=== PATIENT | female | born 1925 | race Caucasian/White ===

== ENCOUNTER 2017-02-10 12:23 | Emergency (ER) | payer OTHER ==
[~2017-02-10] VITALS: Ht 157.5 cm; Wt 87.6 kg
[~2017-02-10 12:23] MED LIST: ALPRAZOLAM0.5 MG PO; AMLODIPINE BESYL5 MG PO; CIPRO500 MG PO; DIGOX250 MCG PO; DILTIAZEM 24HR240 MG PO; HYDROCODON-ACE1 EAC8 PO; JANUVIA100 MG PO; K-DUR20 MEQ PO; KEFLEX500 MG PO; LASIX40 MG PO; LOPRESSOR100 M1 PO; LOPRESSOR25 MG PO; MIRALAX17 GM PO; MIRALAX255 GM PO; OMEPRAZOLE20 MG PO; POLYETHYLENE GL17 GM PO; POTASSIUM CHLO20 ME1 PO
[2017-02-10 13:27] LABS: HEMATOCRIT 38.6 % (36.0-46.0); MCH 28.4 PG (29.0-34.0); MCHC 31.1 G/DL (30.0-36.0); MCV 91.3 FL (83-99); MEAN PLAT.VOLUME 9.6 uM^3 (9.5-12.4); NRBC (%) 0.4 /100 WBC (0-0); PLATELET COUNT 239 K/uL (156-360); RBC DIS.WIDTH-CV 15.8 % (11.8-14.6); RBC DIS.WIDTH-SD 52.2 % (39-53); RED BLOOD COUNT 4.23 M/uL (3.80-5.20); WHITE BLOOD COUNT 5.6 K/uL (4.1-10.2)
[2017-02-10 13:38] LABS: INTER. NORMALIZED RATIO 1.1; PROTHROMBIN TIME 10.7 (9.2-11.2); PTT 28.2 (25-32)
[2017-02-10 13:50] LABS: TROP-I INTERPRETATION NEGATIVE; TROPONIN-I < 0.01 ng/mL (0.0-0.30)
[2017-02-10 13:51] LABS: CHLORIDE 105 mEq/L (99-109); POTASSIUM 3.7 mEq/L (3.7-5.4); SODIUM 142 mEq/L (136-147)
[2017-02-10 13:53] LABS: GLUCOSE 113 mg/dL (70-99)
[2017-02-10 13:55] LABS: ANION GAP 10 MEQ/L (2-14); TOTAL BILIRUBIN 0.7 mg/dL (0.0-1.0)
[2017-02-10 13:57] LABS: ALKALINE PHOSPHATASE 56 IU/L (3-129); GFR ESTIMATE (CALCULATED) > 59 mL/min/
[2017-02-10 13:58] LABS: UREA NITROGEN (BUN) 14 mg/dL (9-23)
[2017-02-10 14:00] LABS: LIPASE 15 U/L (1.0-51.0)
[2017-02-10 14:35] LABS: INFLUENZA A VIRAL ANTIGEN NEGATIVE; INFLUENZA B VIRAL ANTIGEN NEGATIVE
[2017-02-10] MEDS ORDERED: ZOFRAN ODT4 MG PO (18:27)
[2017-02-10 19:28] VITALS: BP 145/78
== END 2017-02-10 19:36 | disposition home or self-care (01) ==
LOC: EME 12:23
PROVIDERS: Emergency Medicine
DX: K52.9 Noninfective gastroenteritis and colitis, unspecified (principal); I10 Essential (primary) hypertension
CPT/HCPCS: 71020; 74177; 80053; 81003; 83690; 84484; 85027; 85610; 85730; 87502; 93005; 99281; 99285

== ENCOUNTER 2017-04-18 11:10 | Inpatient (IN) | payer OTHER ==
[~2017-04-18] VITALS: Ht 160 cm; Wt 89.0 kg
[~2017-04-18 11:10] MED LIST changes: +ZOFRAN ODT4 MG PO
[2017-04-18 13:09] LABS: HEMATOCRIT 41.5 % (36.0-46.0); MCH 28.6 PG (29.0-34.0); MCHC 30.6 G/DL (30.0-36.0); MCV 93.5 FL (83-99); MEAN PLAT.VOLUME 10.9 uM^3 (9.5-12.4); PLATELET COUNT 129 K/uL (156-360); RBC DIS.WIDTH-CV 17.6 % (11.8-14.6); RBC DIS.WIDTH-SD 59.6 % (39-53); RED BLOOD COUNT 4.44 M/uL (3.80-5.20); WHITE BLOOD COUNT 8.8 K/uL (4.1-10.2)
[2017-04-18 13:19] LABS: CHLORIDE 104 mEq/L (99-109); INTER. NORMALIZED RATIO 1.1; POTASSIUM 4.6 mEq/L (3.7-5.4); PROTHROMBIN TIME 10.8 (9.2-11.2); PTT 26.3 (25-32); SODIUM 139 mEq/L (136-147)
[2017-04-18 13:22] LABS: GLUCOSE 130 mg/dL (70-99)
[2017-04-18 13:23] LABS: ANION GAP 11 MEQ/L (2-14)
[2017-04-18 13:24] LABS: TOTAL BILIRUBIN 0.8 mg/dL (0.0-1.0)
[2017-04-18 13:25] LABS: ALKALINE PHOSPHATASE 54 IU/L (3-129); GFR ESTIMATE (CALCULATED) 55 mL/min/
[2017-04-18 13:26] LABS: UREA NITROGEN (BUN) 20 mg/dL (9-23)
[2017-04-18 13:30] LABS: TROP-I INTERPRETATION NEGATIVE; TROPONIN-I < 0.01 ng/mL (0.0-0.30)
[2017-04-18 16:57] LABS: POINT-OF-CARE METER ID UU13113747
[2017-04-18 22:38] LABS: POINT-OF-CARE METER ID UU13113747
[2017-04-19 00:59] VITALS: BP 130/69
[2017-04-19 07:14] LABS: HEMATOCRIT 37.9 % (36.0-46.0); MCH 28.4 PG (29.0-34.0); MCHC 30.1 G/DL (30.0-36.0); MCV 94.3 FL (83-99); MEAN PLAT.VOLUME 9.9 uM^3 (9.5-12.4); PLATELET COUNT 95 K/uL (156-360); RBC DIS.WIDTH-CV 17.7 % (11.8-14.6); RED BLOOD COUNT 4.02 M/uL (3.80-5.20); WHITE BLOOD COUNT 7.3 K/uL (4.1-10.2)
[2017-04-19 07:38] LABS: ANION GAP 6 MEQ/L (2-14); CHLORIDE 106 MEQ/L (99-109); GFR ESTIMATE (CALCULATED) > 59 mL/min/; GLUCOSE 103 mg/dL (70-99); POTASSIUM 4.4 MEQ/L (3.7-5.4); SAMPLE HEMOLYSIS CHECK 0; SAMPLE ICTERIC CHECK 0; SAMPLE LIPEMIA CHECK 0; SODIUM 139 MEQ/L (136-147); UREA NITROGEN (BUN) 17 mg/dL (9-23)
[2017-04-19 08:24] VITALS: BP 130/71
[2017-04-19 11:56] VITALS: BP 117/65
[2017-04-19 12:50] LABS: POINT-OF-CARE METER ID UU14188577
[2017-04-19 15:47] VITALS: BP 130/70
[2017-04-19 17:01] LABS: POINT-OF-CARE METER ID UU14149397
[2017-04-19 21:21] VITALS: BP 126/56
[2017-04-19 22:34] LABS: POINT-OF-CARE METER ID UU14188577
[2017-04-19 23:46] VITALS: BP 120/57
[2017-04-20 04:12] VITALS: BP 128/77
[2017-04-20 06:13] LABS: HEMATOCRIT 33.6 % (36.0-46.0)
[2017-04-20 06:36] LABS: POINT-OF-CARE METER ID UU14188577
[2017-04-20 06:40] LABS: ANION GAP 5 MEQ/L (2-14); CHLORIDE 107 MEQ/L (99-109); GFR ESTIMATE (CALCULATED) > 59 mL/min/; GLUCOSE 92 mg/dL (70-99); POTASSIUM 4.7 MEQ/L (3.7-5.4); SAMPLE HEMOLYSIS CHECK 0; SAMPLE ICTERIC CHECK 0; SAMPLE LIPEMIA CHECK 0; SODIUM 140 MEQ/L (136-147); UREA NITROGEN (BUN) 18 mg/dL (9-23)
[2017-04-20 08:11] VITALS: BP 132/82
[2017-04-20 10:38] VITALS: BP 126/70
[2017-04-20 16:28] VITALS: BP 115/72
[2017-04-20 16:56] LABS: POINT-OF-CARE METER ID UU14188577
[2017-04-20 19:57] VITALS: BP 116/59
[2017-04-20 22:03] LABS: POINT-OF-CARE METER ID UU14188577
[2017-04-21 03:50] VITALS: BP 113/59
[2017-04-21 07:09] LABS: HEMATOCRIT 32.8 % (36.0-46.0); MCV 96.5 FL (83-99)
[2017-04-21 08:09] VITALS: BP 95/54
[2017-04-21 11:27] VITALS: BP 119/64
[2017-04-21 12:17] LABS: POINT-OF-CARE METER ID UU14149397
[2017-04-21 15:54] VITALS: BP 108/60
[2017-04-21 16:57] LABS: POINT-OF-CARE METER ID UU14149397
[2017-04-21 19:47] VITALS: BP 108/57
[2017-04-21 20:36] LABS: POINT-OF-CARE METER ID UU14149397; POINT-OF-CARE USER ID 609231305
[2017-04-21 23:49] VITALS: BP 104/52
[2017-04-22 04:13] VITALS: BP 105/57
[2017-04-22 08:27] VITALS: BP 115/68; BP 1158/68
[2017-04-22 11:31] LABS: POINT-OF-CARE METER ID UU14149397
[2017-04-22 11:53] VITALS: BP 108/65
[2017-04-22 15:49] VITALS: BP 118/70
[2017-04-22 16:34] LABS: POINT-OF-CARE METER ID UU14188577
[2017-04-22 20:49] VITALS: BP 104/64
[2017-04-23] VITALS (7 sets, daily range): BP systolic 110–154; BP diastolic 54–70
[2017-04-23 06:49] LABS: HEMATOCRIT 29.7 % (36.0-46.0); MCH 28.9 PG (29.0-34.0); MCHC 29.6 G/DL (30.0-36.0); MCV 97.7 FL (83-99); MEAN PLAT.VOLUME 10.6 uM^3 (9.5-12.4); PLATELET COUNT 102 K/uL (156-360); RBC DIS.WIDTH-CV 17.6 % (11.8-14.6); RBC DIS.WIDTH-SD 63.2 % (39-53); WHITE BLOOD COUNT 5.5 K/uL (4.1-10.2)
[2017-04-23 06:53] LABS: RED BLOOD COUNT 3.04 M/uL (3.80-5.20)
[2017-04-23 06:54] LABS: POINT-OF-CARE METER ID UU14149397
[2017-04-23 07:07] LABS: ALKALINE PHOSPHATASE 31 IU/L (3-129); ANION GAP 6 MEQ/L (2-14); CHLORIDE 106 MEQ/L (99-109); GFR ESTIMATE (CALCULATED) > 59 mL/min/; GLUCOSE 105 mg/dL (70-99); POTASSIUM 4.4 MEQ/L (3.7-5.4); SAMPLE HEMOLYSIS CHECK 0; SAMPLE ICTERIC CHECK 0; SAMPLE LIPEMIA CHECK 0; SODIUM 140 MEQ/L (136-147); TOTAL BILIRUBIN 0.5 MG/DL (0.0-1.0); UREA NITROGEN (BUN) 18 mg/dL (9-23)
[2017-04-23 11:23] LABS: POINT-OF-CARE METER ID UU14188577
[2017-04-23 21:54] LABS: POINT-OF-CARE METER ID UU14188577
[2017-04-24 03:20] VITALS: BP 124/62
[2017-04-24 06:32] LABS: HEMATOCRIT 28.7 % (36.0-46.0); MCH 29.3 PG (29.0-34.0); MCV 97.6 FL (83-99); MEAN PLAT.VOLUME 11.4 uM^3 (9.5-12.4); PLATELET COUNT 117 K/uL (156-360); RBC DIS.WIDTH-CV 17.2 % (11.8-14.6); RED BLOOD COUNT 2.94 M/uL (3.80-5.20); WHITE BLOOD COUNT 4.8 K/uL (4.1-10.2)
[2017-04-24 06:42] LABS: POINT-OF-CARE METER ID UU14188577
[2017-04-24 08:02] VITALS: BP 118/67
[2017-04-24 11:53] LABS: POINT-OF-CARE METER ID UU14149397
[2017-04-24 12:17] VITALS: BP 164/88
[2017-04-24 16:11] VITALS: BP 160/70
[2017-04-24 16:39] LABS: POINT-OF-CARE METER ID UU14149397
[2017-04-24 20:21] VITALS: BP 126/75
[2017-04-24 21:50] LABS: POINT-OF-CARE METER ID UU14149397
[2017-04-25 00:06] VITALS: BP 117/58
[2017-04-25 04:19] VITALS: BP 138/79
[2017-04-25 07:08] LABS: POINT-OF-CARE METER ID UU14149397
[2017-04-25 07:41] VITALS: BP 135/76
[2017-04-25 11:19] VITALS: BP 138/74
[2017-04-25 12:11] LABS: POINT-OF-CARE METER ID UU14149397
[2017-04-25] MEDS ORDERED: LORATADINE10 M2 PO (14:47)
[2017-04-25] MEDS ORDERED: PAROXETINE HCL10 MG PO (14:47)
[2017-04-25] MEDS ORDERED: DOCUSATE SODIU100 MG PO (14:48)
[2017-04-25] MEDS ORDERED: HYDROXYZINE PAM25 MG PO (14:48)
[2017-04-25] MEDS ORDERED: VITAMIN D-32000 UNI2 PO (14:49)
[2017-04-25] MEDS ORDERED: LIDOCAINE700 MG TD (14:49)
[2017-04-25] MEDS ORDERED: MYCOSTATIN15 GM TP (14:49)
[2017-04-25] MEDS ORDERED: SENNA PLUS TAB1 EACH PO (14:49)
[2017-04-25] MEDS ORDERED: THERAGRAN1 TABLET PO (14:50)
[2017-04-25 15:27] VITALS: BP 137/69
[2017-04-25 19:52] VITALS: BP 126/66
== END 2017-04-25 21:14 | DRG 470 ==
LOC: EME 11:10 → EDOF 14:45 → 3EAST 14:45
PROVIDERS: Emergency Medicine; Internal Medicine; Orthopaedic Surgery
PROC: 0SRB049 Replacement of Left Hip Joint with Ceramic on Polyethylene Synthetic Substitute, Cemented, Open Approach (ICD-10-PCS; principal; 2017-04-19)
DX: S72.012A Unspecified intracapsular fracture of left femur, initial encounter for closed fracture (principal); E11.9 Type 2 diabetes mellitus without complications; I48.2 Chronic atrial fibrillation; E66.9 Obesity, unspecified; I10 Essential (primary) hypertension; F41.9 Anxiety disorder, unspecified; G89.29 Other chronic pain; I51.7 Cardiomegaly; J30.9 Allergic rhinitis, unspecified; K21.9 Gastro-esophageal reflux disease without esophagitis; K59.00 Constipation, unspecified; M10.9 Gout, unspecified; W01.0XXA Fall on same level from slipping, tripping and stumbling without subsequent striking against object, initial encounter; M17.11 Unilateral primary osteoarthritis, right knee; Y92.199 Unspecified place in other specified residential institution as the place of occurrence of the external cause; Z75.1 Person awaiting admission to adequate facility elsewhere; M25.551 Pain in right hip; R06.02 Shortness of breath; R53.83 Other fatigue; Z68.34 Body mass index [BMI] 34.0-34.9, adult; L29.9 Pruritus, unspecified
CPT/HCPCS: 71010; 71275; 73502; 80048; 80053; 82272; 82948; 84484; 85014; 85018; 85027; 85610; 85730; 86900; 86901; 93005; 94799; 97530 GO; 97530 GP; 99281; 99285; C1713; J0690; J1170; J1644; J1650; J1815; J1885; J2270; J2405; J3010; J7050; J7120